=== PATIENT | male | born 1995 | race African-American/Black ===

== ENCOUNTER 2016-09-26 14:50 | Emergency (ER) | payer SELFPAY ==
[~2016-09-26] VITALS: Ht 175.3 cm; Wt 80.0 kg
[2016-09-26] MEDS ORDERED: SODIUM CHLORIDE 0.9% 1,000 ML IV ONE (17:05)
[2016-09-26] MEDS ORDERED: KETOROLAC 30MG/ML VIAL IV STA (17:05)
[2016-09-26] MEDS ORDERED: ACETAMINOPHEN 325MG TABLET PO ONE (17:15)
[2016-09-26 17:20] LABS: BASOPHILS % 0.6 % (0.0-2.0); HEMATOCRIT. 39.3 % (42.0-52.0); HEMOGLOBIN. 13.2 g/dL (14.0-18.0); LYMPHOCYTES % 10.3 % (20.0-50.0); MEAN CORPUSCULAR HEMOGLOBIN 29.6 pg (28.0-32.0); MEAN CORPUSCULAR VOLUME 87.9 fL (80.0-94.0); MEAN PLATELET VOLUME 8.1 fl (7.4-10.4); MONOCYTES % 5.6 % (2.0-8.0); NEUTROPHILS % 83.5 % (40.0-76.0); PLATELET 176 x1000/uL (130-400); RED BLOOD CELL COUNT 4.47 mill/uL (4.7-6.1); RED CELL DISTRIBUTION WIDTH 13.3 % (11.6-14.6)
[2016-09-26 17:30] LABS: CARBON DIOXIDE 25 mEq/L (21-32); CHLORIDE 106 mEq/L (98-107)
[2016-09-26 17:35] LABS: ETHANOL BLOOD < 10 mg/dL; INR 1.1; PROTHROMBIN TIME 11.9 sec
[2016-09-26 21:02] LABS: CLARITY URINE CLEAR (CLEAR); COLOR URINE YELLOW (YELLOW); GLUCOSE URINE NEGATIVE (NEGATIVE); KETONES URINE TRACE (NEGATIVE); LEUKOCYTE ESTERASE URINE NEGATIVE (NEGATIVE); NITRITE URINE NEGATIVE (NEGATIVE); OCCULT BLOOD URINE NEGATIVE (NEGATIVE); PH URINE 6.5 (4.5-8.0); PROTEIN URINE NEGATIVE (NEGATIVE); SPECIFIC GRAVITY URINE 1.009 (1.005-1.030); UROBILINOGEN URINE 0.2 E.U./dL (0.2-1.0)
[2016-09-26 21:12] LABS: *AMPHETAMINES SCREEN URINE NEGATIVE (NEGATIVE); *BARBITURATES SCREEN URINE NEGATIVE (NEGATIVE); *BENZODIAZEPINES SCREEN URINE NEGATIVE (NEGATIVE); *COCAINE SCREEN URINE NEGATIVE (NEGATIVE); CANNABINOID URINE SCREEN PRESUMTIVE POSITIVE (NEGATIVE); METHADONE URINE SCREEN NEGATIVE (NEGATIVE); OPIATES URINE SCREEN NEGATIVE (NEGATIVE); PHENCYCLIDINE URINE SCREEN NEGATIVE (NEGATIVE)
[2016-09-27 05:44] VITALS: BP 114/78
== END 2016-09-27 15:37 | disposition home or self-care (01) ==
LOC: ER 15:01
DX: F12.10 Cannabis abuse, uncomplicated (principal); F90.9 Attention-deficit hyperactivity disorder, unspecified type
CPT/HCPCS: 36415; 71010; 80053; 80305; 80307; 80329; 81003; 85025; 85610; 96361; 96374; 99285; G0482; J1885; Z7610; J7030

== ENCOUNTER 2019-03-29 09:17 | Emergency (ER) | payer MEDICAID ==
[~2019-03-29] VITALS: Ht 188 cm; Wt 80.0 kg
[2019-03-29 10:43] VITALS: BP 132/75
== END 2019-03-29 10:44 | disposition home or self-care (01) ==
LOC: ER 09:17
DX: L29.8 Other pruritus (principal); F20.9 Schizophrenia, unspecified; F17.210 Nicotine dependence, cigarettes, uncomplicated; F12.10 Cannabis abuse, uncomplicated; J45.909 Unspecified asthma, uncomplicated; Z71.6 Tobacco abuse counseling
CPT/HCPCS: 99281; 99406

== ENCOUNTER 2019-07-05 01:20 | Emergency (ER) | payer MEDICAID ==
[~2019-07-05] VITALS: Ht 177.8 cm; Wt 77.0 kg
[2019-07-05] MEDS ORDERED: ALBUTEROL (0.083%) 2.5MG/3ML NEB HHN STA (02:39)
[2019-07-05] MEDS ORDERED: PREDNISONE 20MG TABLET PO STA (02:39)
[2019-07-05] MEDS ORDERED: IPRATROPIUM BROMIDE (0.02%) 0.5MG/2.5ML NEB HHN STA (02:39)
[2019-07-05 03:16] LABS: BASOPHILS % 0.7 % (0.0-2.0); HEMATOCRIT. 43.9 % (42.0-52.0); HEMOGLOBIN. 14.9 g/dL (14.0-18.0); LYMPHOCYTES % 18.9 % (20.0-50.0); MEAN CORPUSCULAR HEMOGLOBIN 30.4 pg (28.0-32.0); MEAN PLATELET VOLUME 7.7 fl (7.4-10.4); MONOCYTES % 7.7 % (2.0-8.0); NEUTROPHILS % 71.7 % (40.0-76.0); PLATELET 218 x1000/uL (130-400); RED BLOOD CELL COUNT 4.88 mill/uL (4.7-6.1); RED CELL DISTRIBUTION WIDTH 13.4 % (11.6-14.6)
[2019-07-05 03:24] LABS: CHLORIDE 109 mEq/L (98-107); PROTHROMBIN TIME 10.7 sec (9.6-11.0)
[2019-07-05 03:27] LABS: ETHANOL BLOOD < 10 mg/dL
[2019-07-05 03:31] LABS: CREATINE KINASE 680 IU/L (39-308)
[2019-07-05] MEDS ORDERED: SODIUM CHLORIDE 0.9% 1,000 ML IV ONE (03:45)
[2019-07-05 06:06] LABS: CLARITY URINE CLEAR (CLEAR); COLOR URINE YELLOW (YELLOW); KETONES URINE TRACE (NEGATIVE); LEUKOCYTE ESTERASE URINE NEGATIVE (NEGATIVE); NITRITE URINE NEGATIVE (NEGATIVE); OCCULT BLOOD URINE NEGATIVE (NEGATIVE); PH URINE 5.5 (4.5-8.0); PROTEIN URINE TRACE (NEGATIVE)
[2019-07-05 06:18] LABS: *AMPHETAMINES SCREEN URINE NEGATIVE (NEGATIVE); *BARBITURATES SCREEN URINE NEGATIVE (NEGATIVE); *BENZODIAZEPINES SCREEN URINE NEGATIVE (NEGATIVE); *COCAINE SCREEN URINE PRESUMTIVE POSITIVE (NEGATIVE); METHADONE URINE SCREEN NEGATIVE (NEGATIVE); OPIATES URINE SCREEN NEGATIVE (NEGATIVE)
[2019-07-05 06:19] LABS: CANNABINOID URINE SCREEN PRESUMTIVE POSITIVE (NEGATIVE); PHENCYCLIDINE URINE SCREEN NEGATIVE (NEGATIVE)
[2019-07-05] MEDS ORDERED: ACETAMINOPHEN 325MG TABLET PO STA (10:39)
[2019-07-05] MEDS: OLANZAPINE 10MG TABLET PO SCH (19:28)
[2019-07-06] MEDS ORDERED: LORAZEPAM 1MG TABLET PO ONE (09:00)
[2019-07-06] MEDS: OLANZAPINE 10MG TABLET PO SCH ×2 (09:43→17:12)
[2019-07-06 17:11] LABS: HEMATOCRIT 42.8 % (42.0-52.0); HEMOGLOBIN 14.3 g/dL (14.0-18.0); MEAN CORPUSCULAR HEMOGLOBIN 30.4 pg (28.0-32.0); MEAN CORPUSCULAR VOLUME 90.6 fL (80.0-94.0); PLATELET 203 x1000/uL (130-400); RED BLOOD CELL COUNT 4.72 mill/uL (4.7-6.1); RED CELL DISTRIBUTION WIDTH 13.7 % (11.6-14.6)
[2019-07-06 17:21] LABS: CREATINE KINASE 233 IU/L (39-308)
[2019-07-06 19:52] VITALS: BP 117/64
== END 2019-07-06 20:20 ==
LOC: ER 02:05
DX: J45.901 Unspecified asthma with (acute) exacerbation (principal); H61.23 Impacted cerumen, bilateral; F20.9 Schizophrenia, unspecified
CPT/HCPCS: 36415; 69209; 71045; 80053; 80305; 80320; 81003; 82550; 83690; 85025; 85027; 85610; 94640; 99285; J7030; J7512; Z7610; G0480

== ENCOUNTER 2021-06-23 12:24 | Emergency (ER) | payer MEDICAID ==
[~2021-06-23] VITALS: Ht 185.4 cm; Wt 98.0 kg
[2021-06-23] MEDS: DIPHENHYDRAMINE 25MG CAPSULE PO ONE ×2 (13:08→13:10)
[2021-06-23] MEDS ORDERED: DIPHENHYDRAMINE 12.5MG/5ML UDC PO ONE (13:30)
[2021-06-23] MEDS ORDERED: DIPH25CA83 MT ×2 (14:02)
[2021-06-23] MEDS ORDERED: HYDR453.3 TP (14:02)
[2021-06-23] MEDS ORDERED: DIPH-907 MT (14:31)
[2021-06-23 14:33] VITALS: BP 141/58
== END 2021-06-23 14:33 | disposition home or self-care (01) ==
LOC: ER 12:24
DX: R21 Rash and other nonspecific skin eruption (principal); J45.909 Unspecified asthma, uncomplicated; F20.9 Schizophrenia, unspecified
CPT/HCPCS: 99282; Q0163